=== PATIENT | female | born 1945 | race Caucasian/White ===

== ENCOUNTER 2023-03-12 06:54 | Day surgery (SDC) | payer MEDICARE ==
[~2023-03-12] VITALS: Ht 157.5 cm; Wt 59.6 kg
[2023-03-12] VITALS (9 sets, daily range): BP systolic 119–169; BP diastolic 55–79; PULSE 45–58; RESP 16; TEMP 98.2; O2SAT 94–98
[2023-03-12] MEDS ORDERED: normal saline 1000ml 1,000 ML IV SCH ×2 (07:25→10:10)
[2023-03-12] MEDS ORDERED: ROSU10TA28 PO (07:49)
[2023-03-12] MEDS ORDERED: ACET-2119 PO (07:49)
[2023-03-12] MEDS ORDERED: LISI10TA27 PO (07:49)
[2023-03-12] MEDS ORDERED: THC PO (07:50)
[2023-03-12] MEDS ORDERED: CBD GUMMIES PO (07:50)
[2023-03-12] MEDS ORDERED: CHOL100046 PO (07:50)
[2023-03-12] MEDS ORDERED: CALC-627 PO (07:51)
[2023-03-12 07:52] LABS: BASOPHILS # (AUTO) 0.1 X10'3 (0-0.2); BASOPHILS % (AUTO) 1.2 % (0-1); EOSINOPHILS # (AUTO) 0.1 X10'3 (0-0.9); HEMATOCRIT 40.1 % (35.0-45.0); HEMOGLOBIN 13.6 g/dl (12.0-16.0); LYMPHOCYTES # (AUTO) 2.2 X10'3 (1.1-4.8); LYMPHOCYTES % (AUTO) 37.4 % (21-51); MEAN CORPUSCULAR HEMOGLOBIN 30.7 PG (27.0-31.0); MEAN CORPUSCULAR VOLUME 90.3 FL (78-98); MEAN PLATELET VOLUME 9.1 FL (7.4-10.4); MONOCYTES # (AUTO) 0.6 X10'3 (0-0.9); NEUTROPHILS # (AUTO) 2.9 X10'3 (1.8-7.7); NEUTROPHILS % (AUTO) 49.4 % (42-75); PLATELET COUNT 170 X10'3 (140-440); RED BLOOD COUNT 4.44 X10'6 (4.20-5.60); RED CELL DISTRIBUTION WIDTH 13.2 % (11.5-14.5); WHITE BLOOD COUNT 5.8 X10'3 (4.5-11.0)
[2023-03-12] MEDS ORDERED: LIDOcaine 1% 30ml preserv. free vial ONE (08:27)
[2023-03-12] MEDS ORDERED: midazolam 1 mg/ML 2ml injection ONE ×2 (08:27→09:24)
[2023-03-12] MEDS ORDERED: fentaNYL/PF 50MCG/1 ML 2ML syringe ONE ×2 (08:27→09:24)
[2023-03-12] MEDS ORDERED: diphenhydrAMINE 50 mg/ml inj ONE (08:28)
[2023-03-12] MEDS ORDERED: HYDROcodone/acetaminophen 5mg/325mg tablet PO PRN (10:10)
== END 2023-03-12 11:50 | disposition home or self-care (01) ==
LOC: SSTAY O 06:54
PROVIDERS: ATTEND Radiology Vascular & Interventional Radiology
DX: M89.8X8 Other specified disorders of bone, other site (principal); C90.00 Multiple myeloma not having achieved remission; I10 Essential (primary) hypertension; M19.90 Unspecified osteoarthritis, unspecified site; Z79.899 Other long term (current) drug therapy; Z72.89 Other problems related to lifestyle; Z90.49 Acquired absence of other specified parts of digestive tract; Z98.890 Other specified postprocedural states; Z90.710 Acquired absence of both cervix and uterus; Z80.51 Family history of malignant neoplasm of kidney
CPT/HCPCS: 20225; 36415; 77002; 85025; 99152; 99153; J1200; J2250; J3010; J3490; J7030; A4620